=== PATIENT | female | born 1965 | race African-American/Black ===

== ENCOUNTER 2018-08-31 05:00 | Inpatient (IN) | payer MEDICARE, OTHER ==
[2018-08-28 11:03] LABS: BASOPHILS % 0.3 % (0.0-1.0); EOSINOPHILS # (AUTO) 0.1 (0.0-0.4); HEMOGLOBIN 12.2 g/dL (12.0-16.0); LYMPHOCYTES # (AUTO) 1.5 (1.0-3.2); LYMPHOCYTES % 21.6 % (18.0-39.1); MEAN CORPUSCULAR HEMOGLOBIN 26.7 pg (28-32); MEAN CORPUSCULAR HGB CONC 29.8 g/dL (31-35); MEAN CORPUSCULAR VOLUME 89.7 fL (81-99); MONOCYTES # (AUTO) 0.5 (0.2-0.8); MONOCYTES % 7.4 % (4.4-11.3); NEUTROPHILS # (AUTO) 4.9 (2.1-6.9); NEUTROPHILS % 68.6 % (38.7-80.0); PLATELET COUNT 250 x10e3/uL (140-360); RED BLOOD COUNT 4.57 x10e6/uL (3.6-5.1); RED CELL DISTRIBUTION WIDTH 15.2 % (11.7-14.4)
[2018-08-28 11:34] LABS: ANION GAP 15.4 mmol/L (8-16); CALCIUM 10.2 mg/dL (8.4-10.2); CREATININE, SERUM 1.53 mg/dL (0.57-1.11); POTASSIUM 4.4 mmol/L (3.5-5.1)
[~2018-08-31] VITALS: Ht 162.6 cm; Wt 202.1 kg
[~2018-08-31 05:00] MED LIST: ALLOPURINOL100 MG PO; AMLODIPINE-BEN1 EAC5 PO; ATORVASTATIN CA20 MG PO; CENTRUM SILVER1 EAC3 PEG; CYMBALTA30 MG PO; FERROUS SULFAT324 MG PO; FUROSEMIDE40 MG PO; GABAPENTIN400 MG PO; HYDRALAZINE HCL25 MG PO; LEVOTHYROXINE112 MCG PO; OXYBUTYNIN CHLOR5 MG PO; VITAMIN D35000 UNI1 PO
[2018-08-31] MEDS ORDERED: CEFAZOLIN SOD 2 GM/D5W 50ML 50 ML IV ONE (07:05)
[2018-08-31] MEDS ORDERED: SUCCINYLCHOLINE CHLORIDE 20 MG/ML 10ML VIAL ONE (09:49)
[2018-08-31] MEDS ORDERED: BUPIVACAINE 0.25% 30ML SDV INJ ONE (09:49)
[2018-08-31] MEDS ORDERED: ACETAMINOPHEN 1000 MG/100 ML 100 ML IV ONE (09:49)
[2018-08-31] MEDS ORDERED: ONDANSETRON HCL INJ 2 MG/ML VIAL IV PRN (10:15)
[2018-08-31] MEDS ORDERED: SCOPOLAMINE 1.5 MG PATCH TOP SCH ×2 (10:15→12:15)
[2018-08-31] MEDS ORDERED: SODIUM CHLORIDE 0.9% 1000ML 1,000 ML IV SCH (12:12)
[2018-08-31] MEDS ORDERED: MORPHINE SULFATE 2 MG/ML SYR IV PRN (12:15)
[2018-08-31] MEDS ORDERED: METOCLOPRAMIDE HCL 10 MG/2ML VIAL ONE (12:32)
[2018-08-31] MEDS ORDERED: HYDROMORPHONE 2MG/ML 2 MG/ML ML ONE (12:48)
[2018-08-31] MEDS ORDERED: PROMETHAZINE HCL (IM) 25 MG/ML VIAL ONE (13:09)
[2018-08-31 14:00] VITALS: BP 133/75
[2018-08-31 14:12] VITALS: BP 133/75
--- NOTE | 2018-08-31 14:18 | Operative Report ---
DATE OF PROCEDURE: August 31, 2018 PREOPERATIVE DIAGNOSES 1. Morbid obesity, body mass index 75, weight 440 pounds. 2. Hypertension. 3. Dyslipidemia. 4. Low vitamin D level. POSTOPERATIVE DIAGNOSES 1. Morbid obesity, body mass index 75, weight 440 pounds. 2. Hypertension. 3. Dyslipidemia. 4. Low vitamin D level. PREOP MEDICATION: Treat disease, prevent complications related to comorbid conditions of obesity. PROCEDURE PERFORMED: Laparoscopic vertical sleeve gastrectomy. ANESTHESIA: General. CONTINUOUS YARN DYEING MACHINE OPERATOR: Jose Yao, Surgical Manufacturing Process Technician. FLUIDS: 1200 mL crystalloid. ESTIMATED BLOOD LOSS: 50 mL. DRAINS: None. COMPLICATIONS: None. SPECIMENS: Partial stomach. GRAFTS: None. FINDINGS 1. Normal upper GI anatomy. 2. Negative intraoperative EGD leak test. PROCEDURAL DETAILS: The patient was brought to the operating room and was intubated under general endotracheal anesthesia. She was positioned supine with both arms abducted and all pressure points appropriately padded. She was sterilely prepped and draped in the usual fashion. A preprocedural pause was performed, identifying the patient and the use of perioperative antibiotics, intended procedure and the staff surgeon. A primary 5-mm left subcostal incision was made, and a Veress needle was inserted to insufflate the abdomen to a pressure of 15 mmHg pressure. A 0-degree 5-mm Optiview trocar was placed under direct visualization. No injuries were noted. Four additional trocars were placed in the standard positions. The patient was then placed in the steep reverse Trendelenburg position, and a liver retractor was placed to expose the proximal stomach and the hiatus. After desufflating the stomach, the orogastric tube placed by Anesthesia was then removed. I then mobilized the greater curvature of the stomach by ligating the gastroepiploic, short gastric, and posterior short gastric vessels using the [place] LigaSure device beginning about 4 cm proximal to the pyloric valve and going up proximally to the left joesph of the diaphragm. Once this was complete, I then inserted an adult-size endoscope and placed this against the lesser curvature of the stomach and resected the greater curvature of the stomach along the length of this endoscope, which was used as a bougie, using multiple firings of a 60-mm endo BEN [employer] purple load stapling device. We used a total of about 6 anastasiia loads for the resection. I then submerged the sleeve staple line under saline and did an intraoperative leak test. No leaks were identified. The specimen was then removed through the right periumbilical port site. The port sit was closed with 0 Vicryl suture using the Delon-Umair technique in a figure-of-8 fashion. Hemostasis was assured. The liver retractor was removed. We then desufflated the abdomen and removed the trocars. We closed the incision site with a 4-0 Monocryl suture in a subcuticular fashion. We used 30 mL of 0.25% bupivacaine in both the preperitoneal incision sites. Dermabond dressings were applied. The patient tolerated the procedure well. Type of wound is type 2, clean, contaminated. Job#: [id number]
[2018-08-31 16:45] VITALS: BP 151/81
[2018-08-31] MEDS: SODIUM CHLORIDE 0.9% 1000ML 1,000 ML IV SCH (17:29)
[2018-08-31] MEDS ORDERED: MIDAZOLAM HCL 2 MG/2 ML VIAL ONE (18:38)
[2018-08-31] MEDS ORDERED: FENTANYL CITRATE/PF 100MCG/2 ML INJ ONE (18:38)
[2018-08-31] MEDS: ONDANSETRON HCL INJ 2 MG/ML VIAL IV PRN (18:44)
[2018-08-31] MEDS: MORPHINE SULFATE 2 MG/ML SYR IV PRN ×2 (18:44→21:50)
--- NOTE | 2018-08-31 19:10 | Consultation ---
DATE OF CONSULTATION: August 31, 2018 REASON FOR CONSULTATION: Medical management. HISTORY OF PRESENT ILLNESS: This is a 52-year-old woman who underwent successful laparoscopic vertical gastrectomy today. The surgery was performed by Dr. Pablo. The patient states at this time her pain is a level 6 out of 10. The patient denies any chest pain, shortness of breath or cough. The patient has underlying history of hypertension as well as stage 3 chronic kidney disease. Three days prior to this surgery the patient's BUN and creatinine were 11 and 1.5 respectively with a serum bicarbonate of 20 and a potassium 4.4. The patient's calcium was 10.2. REVIEW OF SYSTEMS: GENERAL: The patient states that she started to gain weight over the years. Denies any fever or chills. Denies any arthralgias or myalgias. HEENT: No headache, no vision changes. CARDIOVASCULAR: No shortness of breath or chest pain. GI: At this time, she has post surgical abdominal pain. : Has Ann catheter in place. Denies any UTI symptoms. The patient states that she has overactive bladder symptoms. NEUROMUSCULAR: The patient states that she has arthritic pain in her bilateral knees. FAMILY HISTORY: The patient has an adult sister who suffers from extreme obesity. The patient's mother of congestive heart failure. Father from diabetes mellitus. SOCIAL HISTORY: She is currently unemployed but receiving disability benefits. She lives with her . No history of tobacco or alcohol use. This patient lives in a single story home and she ambulates with a walker. PAST SURGICAL HISTORY: 1. Partial hysterectomy in 1990. 2. Bilateral knee arthroscopy. ALLERGIES: SULFA ANTIBIOTICS. MEDICATIONS: 1. Allopurinol 100 mg daily. 2. Amlodipine/benazepril 10/20 once daily. 3. Atorvastatin 40 mg nightly. 4. Vitamin D3 5000 units daily. 5. Duloxetine 60 mg daily. 6. Ferrous sulfate 324 mg daily. 7. Furosemide 20 mg b.i.d. 8. Gabapentin 400 mg t.i.d. 9. Hydralazine 50 mg t.i.d. 10. Levothyroxine 137 mcg daily. 11. Centrum Silver once daily. 12. Oxybutynin 5 mg b.i.d. PAST MEDICAL HISTORY: 1. Hyperuricemia. 2. Extreme obesity, BMI 73. 3. Hypertensive heart disease. 4. Stage 3 chronic kidney disease. 5. Hyperlipidemia. 6. Vitamin D deficiency. 7. Depression. 8. Chronic anemia secondary to iron deficiency and chronic kidney disease. 9. Hypothyroidism. 10. Overactive bladder. PHYSICAL EXAMINATION GENERAL: She is awake, alert and oriented, very pleasant and cooperative with exam. VITAL SIGNS: Height 5 feet 4 inches, weight 428 pounds, BMI 73. Blood pressure 150/80, heart rate 94, respiratory rate 16, oxygen saturation 95% on room air. Temperature 96.6. INTEGUMENT: Skin is warm and dry. No pallor, jaundice, diaphoresis. HEENT: Anicteric sclerae with moist mucous membranes. NECK: Supple. No obvious evidence of jugular venous distention, but this is difficulty to assess because of the patient's body habitus. CARDIOVASCULAR: Distant heart sounds. Regular rate and rhythm with an S4 gallop. LUNGS: No rales and no rhonchi, no wheezes. ABDOMEN: Obese. Her surgical incisions are dressed. She has KENDAL drain in place. EXTREMITIES: The patient has sequential compression devices in place (bilateral lower legs). NEUROLOGIC: Intact. No gross focal deficits appreciated. DIAGNOSES 1. Status post left laparoscopic sleeve, gastrectomy. 2. Hypertensive heart disease. 3. Stage 3 chronic kidney disease. 4. Extreme obesity. BMI is 73. PLAN: 1. Pain control. 2. Follow renal function. 3. Intravenous fluids, as ordered by the bariatric surgeon. 4. Encourage incentive spirometer use every hour from 7 a.m. to 7 p.m. to prevent atelectasis. 5. Continue injectable enoxaparin and sequential compression devices on the patient's lower legs to prevent deep venous thrombosis. 6. Mobilize with nursing staff tomorrow. 7. Will resume home medications with small sips of water. I spent 45 minutes in the carte of this patient. I would like to thank Dr. Kwong for this generous consult. Job#: [id number]
[2018-08-31] MEDS ORDERED: NEOSTIGMINE 5 MG/5ML SYR ONE (19:48)
[2018-08-31] MEDS ORDERED: ONDANSETRON HCL INJ 2 MG/ML VIAL ONE (19:48)
[2018-08-31] MEDS ORDERED: ACETAMINOPHEN 1000 MG/100 ML IV ONE (19:48)
[2018-08-31] MEDS ORDERED: SUCCINYLCHOLINE 200 MG/10 ML SYR ONE (19:48)
[2018-08-31] MEDS ORDERED: SEVOFLURANE INHAL SOLN 250 ML PEN BTL ONE (19:48)
[2018-08-31] MEDS ORDERED: EPHEDRINE SULFATE INJ 50 MG/10 ML SYR ONE (19:48)
[2018-08-31] MEDS ORDERED: ROCURONIUM BROMIDE 10 MG/ML 5ML VIAL ONE (19:48)
[2018-08-31] MEDS ORDERED: PROPOFOL IV EMULSION 10 MG/ML 20 ML VIAL ONE (19:48)
[2018-08-31] MEDS ORDERED: DEXAMETHASONE SOD PHOS INJ 4 MG/ML VIAL ONE (19:48)
[2018-08-31] MEDS ORDERED: ATROPINE SULFATE 1 MG/ML VIAL ONE (19:48)
[2018-08-31] MEDS ORDERED: LIDOCAINE HCL 2% LOCAL INJ 5 ML SDV VIAL INJ ONE (19:48)
[2018-08-31 20:00] VITALS: BP 147/82
[2018-08-31] MEDS ORDERED: ENOXAPARIN SOD INJ 40 MG/0.4 ML SYR SC SCH (20:00)
[2018-08-31] MEDS: ENOXAPARIN SOD INJ 40 MG/0.4 ML SYR SC SCH (20:05)
[2018-08-31 20:10] VITALS: BP 147/82
[2018-08-31] MEDS: OXYBUTYNIN CHLORIDE 5 MG TAB PO SCH (20:40)
[2018-08-31] MEDS: ATORVASTATIN 40 MG TAB PO SCH (21:00)
[2018-08-31] MEDS: GABAPENTIN 400 MG CAP PO SCH (21:00)
[2018-08-31] MEDS ORDERED: ATORVASTATIN 20 MG TAB PO SCH (21:00)
[2018-08-31] MEDS: HYDRALAZINE HCL 25 MG TAB PO SCH (21:22)
[2018-09-01] VITALS (7 sets, daily range): BP systolic 95–128; BP diastolic 51–66
[2018-09-01] MEDS: SODIUM CHLORIDE 0.9% 1000ML 1,000 ML IV SCH ×3 (04:26→20:39)
[2018-09-01] MEDS: MORPHINE SULFATE 2 MG/ML SYR IV PRN (04:26)
[2018-09-01] MEDS: LEVOTHYROXINE SODIUM 112 MCG TAB PO SCH (05:50)
[2018-09-01] MEDS: LEVOTHYROXINE SODIUM 25 MCG TABLET PO SCH (05:50)
[2018-09-01 06:59] LABS: ALBUMIN/GLOBULIN RATIO 1.1 (0.8-2.0); CREATININE, SERUM 2.19 mg/dL (0.57-1.11); MAGNESIUM 1.4 MG/DL (1.3-2.1); PHOSPHORUS 4.8 MG/DL (2.3-4.7)
[2018-09-01 07:37] LABS: HEMATOCRIT 30.1 % (34.2-44.1); LYMPHOCYTES # (AUTO) 1.2 (1.0-3.2); LYMPHOCYTES % 10.1 % (18.0-39.1); MEAN CORPUSCULAR HEMOGLOBIN 27.2 pg (28-32); MEAN CORPUSCULAR HGB CONC 29.9 g/dL (31-35); MEAN CORPUSCULAR VOLUME 90.9 fL (81-99); MONOCYTES % 8.6 % (4.4-11.3); NEUTROPHILS # (AUTO) 9.4 (2.1-6.9); PLATELET COUNT 231 x10e3/uL (140-360); RED BLOOD COUNT 3.31 x10e6/uL (3.6-5.1); RED CELL DISTRIBUTION WIDTH 15.8 % (11.7-14.4)
[2018-09-01] MEDS ORDERED: HYDROCODONE/APAP 7.5MG-325MG 1 EA TAB PO PRN (08:00)
[2018-09-01] MEDS: HYDROCODONE/APAP 7.5MG-325MG 1 EA TAB PO PRN ×2 (08:25→18:00)
[2018-09-01] MEDS: HYDRALAZINE HCL 25 MG TAB PO SCH ×3 (08:26→20:39)
[2018-09-01] MEDS: AMLODIPINE BESYLATE 10 MG TAB PO SCH (08:27)
[2018-09-01] MEDS: ENOXAPARIN SOD INJ 40 MG/0.4 ML SYR SC SCH ×2 (08:27→18:00)
[2018-09-01 08:28] LABS: CALCIUM 8.5 mg/dL (8.4-10.2)
[2018-09-01] MEDS ORDERED: BENAZEPRIL HCL 10 MG TAB PO SCH (09:00)
[2018-09-01] MEDS: SODIUM BICARBONATE 650 MG TAB PO SCH ×2 (10:15→18:00)
[2018-09-01] MEDS: OXYBUTYNIN CHLORIDE 5 MG TAB PO SCH ×2 (10:15→18:00)
[2018-09-01] MEDS: ALLOPURINOL 100 MG TAB PO SCH (10:15)
[2018-09-01] MEDS: FERROUS SULFATE 325 MG TAB PO SCH (10:15)
[2018-09-01] MEDS: DULOXETINE HCL 30 MG DELAYED RELEASE PO SCH (10:15)
[2018-09-01] MEDS: GABAPENTIN 400 MG CAP PO SCH ×3 (10:15→20:40)
--- NOTE | 2018-09-01 19:59 | Diagnostic Imaging Report ---
Examination: Single AP view of the chest. COMPARISON: None. INDICATION: Gastric bypass DISCUSSION: Lines/tubes: None. Lungs: Low lung volumes. No focal pneumonia. Pleura: No pleural effusion or pneumothorax. Heart and mediastinum: Prominent heart size. Bones and soft tissues: No acute bony abnormalities. IMPRESSION: No acute cardiopulmonary disease Signed by: Dr. Shane Orona M.D. on 09/01/2018 7:56 PM
[2018-09-01] MEDS: ONDANSETRON HCL INJ 2 MG/ML VIAL IV PRN (20:40)
[2018-09-01] MEDS: ATORVASTATIN 40 MG TAB PO SCH (20:40)
[2018-09-02] VITALS (7 sets, daily range): BP systolic 102–123; BP diastolic 53–58
[2018-09-02] MEDS: SODIUM CHLORIDE 0.9% 1000ML 1,000 ML IV SCH ×3 (02:08→16:39)
[2018-09-02] MEDS: HYDROCODONE/APAP 7.5MG-325MG 1 EA TAB PO PRN ×3 (02:15→20:43)
[2018-09-02] MEDS: LEVOTHYROXINE SODIUM 112 MCG TAB PO SCH (05:46)
[2018-09-02] MEDS: LEVOTHYROXINE SODIUM 25 MCG TABLET PO SCH (05:46)
[2018-09-02 06:18] LABS: BASOPHILS % 0.2 % (0.0-1.0); EOSINOPHILS % 0.1 % (0.0-6.0); HEMATOCRIT 25.8 % (34.2-44.1); HEMOGLOBIN 7.5 g/dL (12.0-16.0); LYMPHOCYTES # (AUTO) 1.3 (1.0-3.2); LYMPHOCYTES % 10.9 % (18.0-39.1); MEAN CORPUSCULAR HEMOGLOBIN 27.2 pg (28-32); MEAN CORPUSCULAR HGB CONC 29.1 g/dL (31-35); MEAN CORPUSCULAR VOLUME 93.5 fL (81-99); MONOCYTES % 8.6 % (4.4-11.3); NEUTROPHILS # (AUTO) 9.1 (2.1-6.9); NEUTROPHILS % 79.5 % (38.7-80.0); PLATELET COUNT 216 x10e3/uL (140-360); RED BLOOD COUNT 2.76 x10e6/uL (3.6-5.1); RED CELL DISTRIBUTION WIDTH 16.1 % (11.7-14.4)
[2018-09-02 06:51] LABS: ALBUMIN/GLOBULIN RATIO 1.2 (0.8-2.0); ANION GAP 13.1 mmol/L (8-16); CALCIUM 8.9 mg/dL (8.4-10.2); CREATININE, SERUM 3.21 mg/dL (0.57-1.11); POTASSIUM 5.1 mmol/L (3.5-5.1)
[2018-09-02] MEDS: FERROUS SULFATE 325 MG TAB PO SCH (08:30)
[2018-09-02] MEDS: OXYBUTYNIN CHLORIDE 5 MG TAB PO SCH (08:30)
[2018-09-02] MEDS: HYDRALAZINE HCL 25 MG TAB PO SCH (08:30)
[2018-09-02] MEDS: DULOXETINE HCL 30 MG DELAYED RELEASE PO SCH (08:30)
[2018-09-02] MEDS: AMLODIPINE BESYLATE 10 MG TAB PO SCH (08:31)
[2018-09-02] MEDS: ENOXAPARIN SOD INJ 40 MG/0.4 ML SYR SC SCH ×2 (08:31→16:39)
[2018-09-02] MEDS: ALLOPURINOL 100 MG TAB PO SCH (08:31)
[2018-09-02] MEDS: GABAPENTIN 400 MG CAP PO SCH ×3 (08:31→20:43)
[2018-09-02] MEDS: SODIUM BICARBONATE 650 MG TAB PO SCH ×2 (08:31→16:39)
[2018-09-02] MEDS: ATORVASTATIN 40 MG TAB PO SCH (20:43)
[2018-09-03] VITALS (9 sets, daily range): BP systolic 116–173; BP diastolic 55–80
[2018-09-03] MEDS: HYDROCODONE/APAP 7.5MG-325MG 1 EA TAB PO PRN ×3 (02:12→20:47)
[2018-09-03] MEDS: SODIUM CHLORIDE 0.9% 1000ML 1,000 ML IV SCH (02:14)
[2018-09-03] MEDS ORDERED: ACETAMINOPHEN 325 MG TAB PO PRN (04:45)
[2018-09-03] MEDS: LEVOTHYROXINE SODIUM 112 MCG TAB PO SCH (05:39)
[2018-09-03] MEDS: LEVOTHYROXINE SODIUM 25 MCG TABLET PO SCH (05:39)
[2018-09-03 05:54] LABS: BASOPHILS % 0.1 % (0.0-1.0); EOSINOPHILS % 0.3 % (0.0-6.0); HEMATOCRIT 23.5 % (34.2-44.1); LYMPHOCYTES # (AUTO) 1.5 (1.0-3.2); LYMPHOCYTES % 14.7 % (18.0-39.1); MEAN CORPUSCULAR HEMOGLOBIN 27.2 pg (28-32); MEAN CORPUSCULAR HGB CONC 29.4 g/dL (31-35); MEAN CORPUSCULAR VOLUME 92.5 fL (81-99); MONOCYTES # (AUTO) 0.9 (0.2-0.8); NEUTROPHILS # (AUTO) 7.9 (2.1-6.9); NEUTROPHILS % 75.3 % (38.7-80.0); PLATELET COUNT 186 x10e3/uL (140-360); RED BLOOD COUNT 2.54 x10e6/uL (3.6-5.1)
[2018-09-03 06:09] LABS: HEMOGLOBIN 6.9 g/dL (12.0-16.0)
[2018-09-03 06:25] LABS: ALBUMIN/GLOBULIN RATIO 1.1 (0.8-2.0); ANION GAP 14.1 mmol/L (8-16); CALCIUM 9.1 mg/dL (8.4-10.2); CREATININE, SERUM 2.54 mg/dL (0.57-1.11); POTASSIUM 5.1 mmol/L (3.5-5.1)
[2018-09-03] MEDS ORDERED: SODIUM CHLORIDE 0.9% 250ML 250 ML IV ONE (07:30)
[2018-09-03] MEDS: FAMOTIDINE 20 MG/2 ML VIAL IV SCH ×3 (08:10→16:44)
[2018-09-03] MEDS: FERROUS SULFATE 325 MG TAB PO SCH (08:11)
[2018-09-03] MEDS: GABAPENTIN 400 MG CAP PO SCH ×3 (08:11→20:47)
[2018-09-03] MEDS: DULOXETINE HCL 30 MG DELAYED RELEASE PO SCH (08:11)
[2018-09-03] MEDS: SODIUM BICARBONATE 650 MG TAB PO SCH ×2 (08:11→16:45)
[2018-09-03] MEDS ORDERED: FUROSEMIDE INJ 10 MG/ML 4 ML VIAL IV ONE (08:15)
[2018-09-03 09:42] LABS: FERRITIN 57.15 ng/mL (4.63-204.00)
--- NOTE | 2018-09-03 09:46 | Diagnostic Imaging Report ---
PROCEDURE: A single AP view of the chest. COMPARISON: Chest radiograph 09/01/18. INDICATIONS: PNEUMONIA FINDINGS: Lines/tubes: None. Lungs: Low lung volumes. Mild interstitial and perihilar opacities are new since 09/01/18. Pleura: There is no pleural effusion or pneumothorax. Heart and mediastinum: The cardiomediastinal silhouette is unchanged. Bones: No acute bony abnormality. IMPRESSION: New mild right perihilar and interstitial opacity which could reflect asymmetric edema or developing pneumonia. Follow-up chest radiograph is suggested. Dictated by: CORA KIM M.D. on 09/03/2018 at 9:54 Electronically approved by: CORA KIM M.D. on 09/03/2018 at 9:54
[2018-09-03] MEDS ORDERED: CEFEPIME HCL 2 GM VIAL IV STA (11:23)
[2018-09-03] MEDS ORDERED: ALBUTEROL SULF 0.083% NEB SOLN 3 ML NEB NEB STA (11:23)
[2018-09-03] MEDS: FUROSEMIDE INJ 10 MG/ML 2 ML VIAL IV SCH ×2 (12:59→16:42)
[2018-09-03] MEDS: ALBUTEROL SULF 0.083% NEB SOLN 3 ML NEB NEB SCH ×2 (14:00→21:45)
[2018-09-03] MEDS ORDERED: CEFEPIME HCL 2 GM VIAL IV NR (16:15)
[2018-09-03] MEDS ORDERED: ENOXAPARIN 30 MG/0.3 ML SYR SC SCH (17:00)
[2018-09-03] MEDS: ATORVASTATIN 40 MG TAB PO SCH (20:47)
[2018-09-04] MEDS: ALBUTEROL SULF 0.083% NEB SOLN 3 ML NEB NEB SCH ×3 (01:00→13:15)
[2018-09-04 05:00] VITALS: BP 133/71
[2018-09-04 05:44] LABS: BASOPHILS % 0.3 % (0.0-1.0); EOSINOPHILS # (AUTO) 0.1 (0.0-0.4); EOSINOPHILS % 1.4 % (0.0-6.0); HEMATOCRIT 26.7 % (34.2-44.1); HEMOGLOBIN 8.2 g/dL (12.0-16.0); LYMPHOCYTES # (AUTO) 1.8 (1.0-3.2); LYMPHOCYTES % 18.8 % (18.0-39.1); MEAN CORPUSCULAR HEMOGLOBIN 27.3 pg (28-32); MEAN CORPUSCULAR HGB CONC 30.7 g/dL (31-35); MONOCYTES # (AUTO) 1.1 (0.2-0.8); MONOCYTES % 11.7 % (4.4-11.3); NEUTROPHILS # (AUTO) 6.3 (2.1-6.9); NEUTROPHILS % 67.3 % (38.7-80.0); PLATELET COUNT 182 x10e3/uL (140-360); RED CELL DISTRIBUTION WIDTH 16.1 % (11.7-14.4)
[2018-09-04] MEDS: LEVOTHYROXINE SODIUM 112 MCG TAB PO SCH (05:46)
[2018-09-04] MEDS: LEVOTHYROXINE SODIUM 25 MCG TABLET PO SCH (05:46)
[2018-09-04 06:06] LABS: ANION GAP 13.6 mmol/L (8-16); CALCIUM 9.7 mg/dL (8.4-10.2); CREATININE, SERUM 1.79 mg/dL (0.57-1.11); POTASSIUM 4.6 mmol/L (3.5-5.1)
[2018-09-04 07:57] VITALS: BP 147/74
[2018-09-04 08:15] VITALS: BP 147/74
--- NOTE | 2018-09-04 08:54 | Discharge Summary ---
ADMIT DIAGNOSES 1. Extreme obesity. Body mass index 75. 2. Stage 3 chronic kidney disease. 3. Hypertensive heart disease. DISCHARGE DIAGNOSES 1. Status post sleeve gastrectomy. 2. [id number] renal failure, resolved. 3. Iron deficiency anemia. 4. Status post blood transfusion (2 units of packed red blood cells). 5. Right lower lobe pneumonia. 6. Extreme obesity. Body mass index 75. 7. Urinary retention secondary to anesthesia/medications, resolved. HOSPITAL COURSE: This is a 52-year-old woman who was admitted for elective bariatric surgery due to her extreme obesity (BMI 75). The patient was seen by her surgeon, namely Dr. Huber, who performed successful laparoscopic vertical sleeve gastrectomy. The patient tolerated this procedure quite well. Afterwards though, the patient developed ggwwe-[id number] renal failure that was thought to be secondary to hypovolemia and perhaps acute tubular necrosis. The patient improved clinically with intravenous fluids and blood transfusion. The patient's hemoglobin did get as low as 6.9 g/dL, thus she was transfused 2 units of packed red blood cells. Also, the patient was found to have urinary retention. Thus, a Ann catheter was placed. It was felt that the urinary retention was secondary to general anesthesia coupled with a scopolamine patch and oxybutynin pills for her overactive bladder symptoms. The patient's BUN and creatinine on discharge was 24 and 1.79 respectively. Also, during this hospitalization the patient was found to have a serum iron of 44, TIBC 244, ferritin level 57, and transferrin level of 174. Her iron studies were consistent with iron deficiency anemia. Also, during this hospitalization the patient was diagnosed with a right-sided pneumonia. She improved clinically after receiving only 1 dose of intravenous cefepime. The patient's condition on discharge was stable. DISCHARGE MEDICATIONS 1. Ceftin 250 mg p.o. b.i.d. for 5 days. 2. Iron sulfate 325 mg daily. 3. Sodium bicarbonate 650 mg b.i.d. 4. Greenback 7.5 per 325 mg 1 pill every 4 hours p.r.n. pain, 25 prescribed. 5. Allopurinol 100 mg daily. 6. Amlodipine 10 mg daily. 7. Atorvastatin 40 mg at bedtime. 8. Vitamin D3 5000 units daily. 9. Cymbalta 60 mg daily. 10. Furosemide 20 mg daily. 11. Gabapentin 400 mg t.i.d. 12. Hydralazine 50 mg t.i.d. 13. Levothyroxine 137 mcg daily. 14. Centrum Silver once daily. The following medications are discontinued: Oxybutynin and benazepril. Will hold off on restarting those medications until seen by nephrology. FOLLOWUP INSTRUCTIONS: The patient was instructed to follow up with Dr. Pablo, her bariatric surgeon, within a week. The patient was instructed to follow up with her animal nursery worker within 2 weeks. TRAMAINE CHEW MD Job#: [id number] [place] cc: FEDE PABLO MD MTDD
[2018-09-04] MEDS ORDERED: CEFEPIME HCL 2 GM VIAL IV SCH (09:00)
[2018-09-04] MEDS: DULOXETINE HCL 30 MG DELAYED RELEASE PO SCH (09:35)
[2018-09-04] MEDS: FERROUS SULFATE 325 MG TAB PO SCH (09:35)
[2018-09-04] MEDS: FAMOTIDINE 20 MG/2 ML VIAL IV SCH (09:35)
[2018-09-04] MEDS: SODIUM BICARBONATE 650 MG TAB PO SCH (09:41)
[2018-09-04] MEDS: GABAPENTIN 400 MG CAP PO SCH (09:41)
[2018-09-04] MEDS ORDERED: SODIUM BICARBO650 MG PO (10:26)
[2018-09-04] MEDS ORDERED: NORCO 7.5-3251 EACH PO (10:33)
[2018-09-04] MEDS ORDERED: NORVASC10 MG (10:34)
[2018-09-04] MEDS ORDERED: IRON325 M1 (10:36)
[2018-09-04] MEDS ORDERED: CEFUROXIME250 MG PO (10:36)
[2018-09-04 11:56] VITALS: BP 163/78
[2018-09-04] MEDS: HYDROCODONE/APAP 7.5MG-325MG 1 EA TAB PO PRN (13:21)
== END 2018-09-04 14:44 | disposition home health service (06) | DRG 619 ==
LOC: OR 05:00 → PACU V 12:32 → MED/SURG 14:02
PROVIDERS: ADMIT Surgery; ATTEND Surgery
PROC: 0DB64Z3 Excision of Stomach, Percutaneous Endoscopic Approach, Vertical (ICD-10-PCS; principal; 2018-08-31 10:00)
DX: E66.01 Morbid (severe) obesity due to excess calories (principal); N17.0 Acute kidney failure with tubular necrosis; J18.9 Pneumonia, unspecified organism; I13.0 Hypertensive heart and chronic kidney disease with heart failure and stage 1 through stage 4 chronic kidney disease, or unspecified chronic kidney disease; Z68.45 Body mass index [BMI] 70 or greater, adult; D50.9 Iron deficiency anemia, unspecified; N18.3 Chronic kidney disease, stage 3 (moderate); I50.9 Heart failure, unspecified; F32.9 Major depressive disorder, single episode, unspecified; D63.1 Anemia in chronic kidney disease; N32.81 Overactive bladder; E78.5 Hyperlipidemia, unspecified; M19.90 Unspecified osteoarthritis, unspecified site; E87.5 Hyperkalemia; Z79.899 Other long term (current) drug therapy; R33.8 Other retention of urine; T88.59XA Other complications of anesthesia, initial encounter; T41.1X5A Adverse effect of intravenous anesthetics, initial encounter
CPT/HCPCS: 36415; 71045; 80048; 80053; 82607; 82728; 82747; 83540; 83735; 83880; 84100; 84466; 85025; 86850; 86900; 86920; 88307; 94640; 97139; J0330; J0461; J0690; J0692; J1100; J1650; J1940; J2001; J2250; J2270; J2405; J2550; J2765; J7030; J7050; P9016